=== PATIENT | male | born 1995 | race Caucasian/White ===

== ENCOUNTER 2017-05-16 19:04 | Emergency (ER) | payer OTHER ==
[2017-05-16 19:06] VITALS: BP 145/83; PULSE 69; RESP 20; TEMP 98; O2SAT 99
--- NOTE | 2017-05-16 20:26 | PD ---
HPI Chief Complaint: ENT Complaint Time Seen by Provider: 20:23 Travel History International Travel<30 days: No Contact w/Intl Traveler<30days: No Traveled to known affect area: No History of Present Illness HPI Patient comes emergency department with concerns for possible strep pharyngitis. He states he started off with a cough yesterday awoke today having an achy pain in his throat as worse with swallowing coughing. Patient denies taking anything for this. He states he had similar symptoms last year was diagnosed with strep. Patient reports his roommate was sick with cough that has since resolved. Patient denies any fevers, chest pain, shortness of breath, headache or neck pain, abdominal pain, nausea, vomiting, diarrhea, or weight loss. Patient reports pain radiates to his left ear. [facility] Past Medical History Medical History: Denies Significant Hx Social History Alcohol Use: No Tobacco Use: No Substance Use: No Allergies-Medications (Allergen,Severity, Reaction): Coded Allergies: No Known Allergies (Verified Allergy, Unknown, 05/16/17) Review of Systems Except as stated in HPI: all other systems reviewed are Neg Physical Exam Narrative GENERAL: Well-developed, well nourished, in no acute distress, and non-ill appearing. SKIN: Focused skin assessment warm and dry. HEAD: Atraumatic. Normocephalic. EYES: Pupils equal and round. EOMI. No scleral icterus. No injection or drainage. ENT: No nasal bleeding or discharge. Mucous membranes pink and moist. Tympanic membranes pearly flynn bilaterally. Posterior pharynx erythematous without exudate. Uvulas midline. No tenderness to facial sinuses to palpation. Patient speaking in full sentences and able to swallow own saliva without difficulty. NECK: Trachea midline. No cervical lymphadenopathy. Supple. No nuclear rigidity. CARDIOVASCULAR: Regular rate and rhythm. No murmur appreciated. RESPIRATORY: No accessory muscle use. No respiratory distress. Clear to auscultation. Breath sounds equal bilaterally. MUSCULOSKELETAL: No obvious deformities. No clubbing. No cyanosis. No edema. Full range of motion. NEUROLOGICAL: Awake and alert. No obvious cranial nerve deficits. Motor grossly within normal limits. Normal speech. PSYCHIATRIC: Appropriate mood and affect; insight and judgment normal. Data Data Last Documented VS Vital Signs Date Time Temp Pulse Resp B/P (MAP) Pulse Ox O2 Delivery O2 Flow Rate FiO2 1/22/18 19:06 98.0 69 20 145/83 (103) 99 Room Air Orders Orders Influenzae A/B Antigen (05/16/17 20:14) Group A Rapid Strep Screen (05/16/17 20:14) MDM Medical Decision Making Medical Screen Exam Complete: Yes Emergency Medical Condition: Yes Differential Diagnosis Strep pharyngitis, vital pharyngitis, influenza, URI Narrative Course Patient seen and examed. Initial laboratory studies were ordered. Patient was sign Dr. Sherry SHAVER at the end of my shift. Please see her documentation for final diagnosis in disposition. Rudy Rice May 16, 2017 20:25
--- NOTE | 2017-05-16 20:41 | PD ---
Physical Exam Time Seen by Provider: 20:41 Narrative Please refer to previous providers documentation for details surrounding the patient's current visit. Data Data Last Documented VS Vital Signs Date Time Temp Pulse Resp B/P (MAP) Pulse Ox O2 Delivery O2 Flow Rate FiO2 05/16/17 21:53 05/16/17 19:06 98.0 69 20 99 Room Air Orders Orders Influenzae A/B Antigen (05/16/17 20:14) Group A Rapid Strep Screen (05/16/17 20:14) Strep Culture (Group A) (05/16/17 20:11) Ed Discharge Order (05/16/17 21:49) Dexamethasone Inj (Decadron Inj) (05/16/17 22:00) MDM Medical Record Reviewed: Yes Supervised Visit with JAYNE: No Narrative Course Patient is signed out to me with influenza and rapid strep screen pending. Both are negative. This is still likely a viral syndrome and pharyngitis. Patient is given IM Decadron. I have counseled him on care and encouraged follow-up with a primary care provider. He agrees to return immediately with any acute worsening of symptoms. Diagnosis Primary Impression: Viral syndrome Additional Impression: Pharyngitis Qualified Codes: J02.9 - Acute pharyngitis, unspecified Referrals: Primary Care Physician Patient Instructions: General Instructions, Pharyngitis (ED) Departure Forms: Tests/Procedures, Work Release Enter return to work date: May 18, 2017 Additional Instruction: Warm salt water gargles Tylenol and/or ibuprofen as directed on the package as needed for fever and or pain Follow up with primary care provider Return to ED with acute worsening of symptoms Med/Other Pt SpecificInfo: No Change to Meds Disposition: 01 DISCHARGE HOME Condition: Stable Sherry LittleP May 16, 2017 20:41
[2017-05-16] MEDS ORDERED: DEXAMETHASONE SOD PHOS 4 MG/ML VIAL IM ONE (22:00)
== END 2017-05-16 22:03 | disposition home or self-care (01) ==
LOC: NEPK 19:04
DX: B34.9 Viral infection, unspecified (principal); J02.9 Acute pharyngitis, unspecified
CPT/HCPCS: 87081; 87804; 87880; 96372; 99284; J1100